=== PATIENT | female | born 1990 | race African-American/Black ===

== ENCOUNTER 2017-01-17 14:16 | Emergency (ER) | payer OTHER ==
[~2017-01-17] VITALS: Ht 157.5 cm; Wt 63.5 kg
[~2017-01-17 14:16] MED LIST: ACETAMINOPHEN-1 EAC1 PO; ATIVAN0.5 MG PO; FLAGYL; ZOFRAN ODT4 MG PO
[2017-01-17 15:53] VITALS: BP 126/86
== END 2017-01-17 15:57 | disposition home or self-care (01) ==
LOC: ER 14:16
DX: J02.0 Streptococcal pharyngitis (principal); F10.99 Alcohol use, unspecified with unspecified alcohol-induced disorder; Z88.5 Allergy status to narcotic agent

== ENCOUNTER 2017-07-11 10:34 | Emergency (ER) | payer OTHER ==
[~2017-07-11] VITALS: Ht 149.9 cm; Wt 62.6 kg
[2017-07-11] MEDS ORDERED: TESSALON PERLE100 MG PO (11:28)
== END 2017-07-11 11:50 | disposition home or self-care (01) ==
LOC: ER 10:34
DX: J06.9 Acute upper respiratory infection, unspecified (principal); Z88.5 Allergy status to narcotic agent